=== PATIENT | female | born 1955 | race Caucasian/White ===

== ENCOUNTER 2020-11-15 06:20 | Day surgery (SDC) | payer OTHER ==
[~2020-11-15 06:20] MED LIST: LOSARTAN POTASS50 MG PO; PRILOSEC20 MG PO; SERTRALINE HCL50 MG PO
[2020-11-15] MEDS ORDERED: UNKNOWN ANTIBIOTIC (07:38)
[2020-11-15] MEDS ORDERED: PERCOCET 5-3251 EACH PO ×2 (10:37→13:05)
[2020-11-16 06:00] LABS: BASOPHIL 0.1 % (0-2); EOSINOPHIL 0 % (0-7); HCT 31.4 % (37.0-47.0); HGB 9.7 g/dl (12.5-16.0); LYMPHOCYTE 13.7 % (15-48); MCH 28.3 pg (25.0-31.0); MCHC 30.9 g/dL (32.0-36.0); MCV 91.5 fL (78.0-100.0); MONOCYTE 9.3 % (0-12); MPV 9.8 fL (6.0-9.5); NEUTROPHIL 76.5 % (41-80); NRBC 0; PLT 192 K/uL (150-400); RBC 3.43 M/uL (4.20-5.40); RDW 12.6 % (11.5-14.0); WBC 11.4 K/uL (4.0-10.5)
[2020-11-16 06:29] LABS: BUN/CREAT RATIO (CALC) 16.2 RATIO; CREATININE 0.99 mg/dL (0.51-0.95); POTASSIUM 4.7 mmol/L (3.5-5.1)
[2020-11-16] MEDS ORDERED: FEOSOL325 MG PO (08:54)
[2020-11-16] MEDS ORDERED: XARELTO10 MG PO (08:54)
--- NOTE | 2020-11-16 09:55 | NUR ---
PT. TO D/C HOME WITH SPOUSE. PT. HAS A ROLLING WALKER. SPOKE WITH [facility] AT [facility]. COPAY FOR [facility] IS $20.00. PT. REQUESTED OUTPT. AT [facility]. FIRST APPT. IS 11/17/20 @ 2:00 P.M. AFFLIATIONS EXPLAINED.
== END 2020-11-16 11:38 | disposition home or self-care (01) ==
LOC: FAS 06:20 → FMS 11:36 → FAS 11-16 11:38
PROVIDERS: Legal Medicine
DX: M17.12 Unilateral primary osteoarthritis, left knee (principal); M21.162 Varus deformity, not elsewhere classified, left knee; G89.18 Other acute postprocedural pain; M25.512 Pain in left shoulder; I10 Essential (primary) hypertension; F41.8 Other specified anxiety disorders; R01.1 Cardiac murmur, unspecified; K21.9 Gastro-esophageal reflux disease without esophagitis; Z79.01 Long term (current) use of anticoagulants; Z79.899 Other long term (current) drug therapy; Z88.8 Allergy status to other drugs, medicaments and biological substances; Z96.651 Presence of right artificial knee joint
CPT/HCPCS: 36415; 73560; 80048; 85025; 86850; 86900; 86901; 94010; 94762; 97110; 97162; 97166; 97530-GP; 97535; C1713; C1766; C1776; J0171; J0360; J0697; J0735; J1100; J1885; J2250; J2270; J2704; J2795; J3010; J7120

== ENCOUNTER 2021-06-16 09:42 | Emergency (ER) | payer OTHER ==
[~2021-06-16 09:42] MED LIST changes: +FEOSOL325 MG PO; +PERCOCET 5-3251 EACH PO; +UNKNOWN ANTIBIOTIC; +XARELTO10 MG PO
[2021-06-16 10:45] LABS: BASOPHIL 0.3 % (0-2); EOSINOPHIL 0.4 % (0-7); HGB 13.7 g/dl (12.5-16.0); LYMPHOCYTE 20.9 % (15-48); MCH 28.4 pg (25.0-31.0); MCHC 31.9 g/dL (32.0-36.0); MCV 89.2 fL (78.0-100.0); MONOCYTE 5.9 % (0-12); MPV 9.5 fL (6.0-9.5); NEUTROPHIL 72.2 % (41-80); NRBC 0; PLT 201 K/uL (150-400); RBC 4.82 M/uL (4.20-5.40); RDW 13.3 % (11.5-14.0); WBC 7.2 K/uL (4.0-10.5)
[2021-06-16 10:55] LABS: PROTHROMBIN TIME 12.6 SECONDS (11.8-13.4); PTT 26.8 SECONDS (24.4-34.7)
[2021-06-16 10:57] LABS: ALBUMIN 3.7 g/dL (3.4-5.0); BILIRUBIN - TOTAL 0.7 mg/dL (0.2-1.0); BUN/CREAT RATIO (CALC) 23.4 RATIO; CREATININE 0.94 mg/dL (0.51-0.95); GLOBULIN (CALCULATION) 4.4 g/dL; MAGNESIUM 2.1 mg/dL (1.8-2.4); TOTAL PROTEIN 8.1 g/dL (6.4-8.2)
[2021-06-16 13:16] LABS: BILIRUBIN NEGATIVE (NEGATIVE); BLOOD NEGATIVE Ery/uL (NEGATIVE); CLARITY CLEAR (CLEAR); COLOR YELLOW (YELLOW); GLUCOSE (U) NORMAL (NORMAL); LEUKOCYTES NEGATIVE Leu/uL (NEGATIVE); NITRITE NEGATIVE (NEGATIVE); PROTEIN NEGATIVE (NEGATIVE); SPECIFIC GRAVITY 1.025 (1.001-1.030); UROBILINOGEN 0.2 mg/dL (0.2-1.0); pH 5.5 (5.0-9.0)
[2021-06-16] MEDS ORDERED: ZOFRAN4 M1 PO (14:06)
[2021-06-16] MEDS ORDERED: ANTIVERT25 MG PO (14:06)
== END 2021-06-16 14:25 | disposition home or self-care (01) ==
LOC: FER 09:42
PROVIDERS: Emergency Medicine
DX: H81.12 Benign paroxysmal vertigo, left ear (principal); I10 Essential (primary) hypertension; Z88.8 Allergy status to other drugs, medicaments and biological substances; Z79.899 Other long term (current) drug therapy
CPT/HCPCS: 36415; 70450; 70551; 80053; 81003; 83735; 84484; 85025; 85610; 85730; 93005; J2060; J2405